=== PATIENT | male | born 1940 | race Hispanic/Latino ===

== ENCOUNTER 2017-10-03 10:33 | Outpatient (CLI) | payer MEDICARE ==
--- NOTE | 2017-10-03 12:01 | XRay Report ---
XRAY BILATERAL SHOULDER THREE VIEWS EACH: 10/03/17 10:33:00 CLINICAL: Osteoarthritis. Shoulder pain. FINDINGS: Right: Moderate osteopenia. 2 fixation screws in the superolateral humerus. Aren't glenohumeral joint arthritis with inferior humeral and glenoid osteophytes. Mild acromioclavicular joint arthritis. No fracture or dislocation. Normal soft tissues. Left: Moderate osteopenia. Moderately severe glenohumeral joint osteoarthritis with loss of the joint space and inferior humeral and glenoid osteophytes. Moderate acromioclavicular joint arthritis. No fracture or dislocation. Normal soft tissues. 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 Status post right rotator cuff repair.
== END 2017-10-03 10:34 | disposition home or self-care (01) ==
LOC: SPVIMAG 10:33
PROVIDERS: ATTEND Internal Medicine
DX: M19.012 Primary osteoarthritis, left shoulder (principal); M19.011 Primary osteoarthritis, right shoulder; M85.811 Other specified disorders of bone density and structure, right shoulder; M85.812 Other specified disorders of bone density and structure, left shoulder